=== PATIENT | male | born 1985 | race Caucasian/White ===

== ENCOUNTER 2019-07-20 23:00 | Emergency (ER) | payer OTHER ==
[2019-07-20 23:07] VITALS: BP 154/96; PULSE 87; TEMP 97.7; BMI 22.8
--- NOTE | 2019-07-20 23:38 | PDOC ---
History of Present Illness - General Chief Complaint: Penile Drainage Stated Complaint: STD Time Seen by Provider: 07/20/19 23:36 - History of Present Illness Initial Comments: 07/20/19 23:38 The patient is a 33 year old male with no significant PMH who presents for evaluation of possible STD. The patient reports that his girlfriend was just diagnosed with gonorrhea today and presents to the ED for treatment. He otherwise denies fevers, chills, SOb, chest pain, nausea, vomiting, abdominal pain, penile discharge or changes with urination or bowel movements. He denies any history of STDs in the past. Past History - Past Medical History Allergies/Adverse Reactions: Allergies Allergy/AdvReac Type Severity Reaction Status Date / Time No Known Allergies Allergy Verified 07/20/19 23:03 CVA: No COPD: No - Psycho Social/Smoking Cessation Hx Smoking History: Current every day smoker Number of Cigarettes Smoked Daily: 5 Information on smoking cessation initiated: Yes Hx Alcohol Use: No Drug/Substance Use Hx: Yes (Gal) Review of Systems - Review of Systems Comments:: 07/20/19 23:40 Constitutional: No fevers, chills, fatigue, malaise HEENT: No Rhinorrhea, nasal congestion, visual changes Cardiovascular: No chest pain, syncope, palpitations, lightheadedness Respiratory: No Cough, SOB, Hemoptysis, Gastrointestinal: No Abdominal pain, Nausea, Vomiting, Constipation, Diarrhea, Melena Genitourinary: No Dysuria, Frequency, Urgency, Hesitancy, Hematuria, Flank pain Musculoskeletal: No Myalgia, arthralgia Skin: No rashes, itching, bruising, pallor Neurologic: No Headache, Dizziness, Numbness, Weakness, or Tingling Psychiatric: No Hallucinations. No SI or HI *Physical Exam - Vital Signs Last Vital Signs Temp Pulse Resp BP Pulse Ox 97.7 F 87 20 154/96 99 07/20/19 23:04 07/20/19 23:04 07/20/19 23:04 07/20/19 23:04 07/20/19 23:04 - Physical Exam 07/20/19 23:41 General Appearance: Nourished. No Apparent Distress HEENT: No Pharyngeal Erythema, Tonsillar Exudate, Tonsillar Erythema Neck: No Cervical Lymphadenopathy Respiratory/Chest: Lungs Clear, Normal Breath Sounds. No Crackles, Rales, Rhonchi, Wheezing Cardiovascular: Regular Rhythm, Regular Rate. No Murmur, Gallops, Rubs Gastrointestinal/Abdominal: Normal Bowel Sounds, Soft. No Guarding, Rebound, Tenderness Musculoskeletal: No CVA Tenderness Extremity: Normal Capillary Refill Integumentary: Normal Color, Dry, Warm Neurologic: Fully Oriented, Alert, Normal Mood/Affect, Normal Response, Medical Decision Making - Medical Decision Making 07/20/19 23:41 The patient is a 33 year old male with no significant PMH who presents for evaluation of possible STD. Given the patient's history and physical exam, we will treat the patient with ceftriaxone and azithromycin. We are comfortable discharging the patient home in stable condition. Patient and family made aware of impression and plan, return precautions discussed including but not limited to worsening pain or symptoms, fevers, or signs of infection, chest pain, respiratory distress, inability to tolerate oral intake, dehydration, syncope, or neurologic changes. The patient is to follow up with PMD as recommended within 1 week, follow up information provided and the patient will call for an appointment. The patient is to take medications as instructed for duration of time and continue with supportive care, avoid triggers and precipitants. Patient is safe for outpatient follow-up. Discharge - Discharge Information Problems reviewed: Yes Clinical Impression/Diagnosis: STD exposure Condition: Stable Disposition: HOME - Admission No - Follow up/Referral - Patient Discharge Instructions Patient Printed Discharge Instructions: Facts About Sexually Transmitted Infections Additional Instructions: 1) Please follow-up with your primary care doctor in the next 2-3 days. Please call tomorrow to schedule a follow up appointment. If you cannot follow up with your doctor within 1 week please return to the Emergency Department for any urgent issues. 2) If you have any worsening of symptoms or any other concerns, please return to the ER immediately. Return if worsening symptoms including fevers, headache, vomiting, visual or hearing disturbances, abdominal pain, chest pain, shortness of breath, syncope, dehydration, inability to take things by mouth/vomiting, altered mental status, or worsening concerning symptoms. 3) Please continue taking your home medications as directed. Side effects may include upset stomach, abdominal pain, vomiting, or diarrhea. Do not drink alcohol with your medications. - Post Discharge Activity
--- NOTE | 2019-07-20 23:38 | PDOC ---
Attending Attestation - Resident Resident Name: Mihir Gutierrez - ED Attending Attestation I have performed the following: I have examined & evaluated the patient, The case was reviewed & discussed with the resident, I agree w/resident's findings & plan - HPI HPI: 07/20/19 23:37 see resident hpi - Physicial Exam PE: 07/20/19 23:37 agree with resident exam - Medical Decision Making 07/20/19 23:37 33-year-old male here for treatment after his girlfriend was diagnosed with gonorrhea Rocephin and Zithromax administered
[2019-07-20] MEDS ORDERED: cefTRIAXone SODIUM 1 GM VIAL ONE (23:39)
[2019-07-20] MEDS ORDERED: AZITHROMYCIN 250 MG TABLET ONE (23:39)
[2019-07-20] MEDS ORDERED: LIDOCAINE HCL 1%, 10 MG/ML (20ML VIAL) ONE (23:42)
[2019-07-21] MEDS ORDERED: AZITHROMYCIN 500 MG TABLET PO ONE (00:07)
== END 2019-07-21 00:18 | disposition home or self-care (01) ==
LOC: JER 23:00 → JERFT 23:00
DX: Z11.3 Encounter for screening for infections with a predominantly sexual mode of transmission (principal); F17.210 Nicotine dependence, cigarettes, uncomplicated
CPT/HCPCS: 99281-25